=== PATIENT | male | born 1935 | race Caucasian/White ===

== ENCOUNTER 2017-11-17 05:48 | Day surgery (SDC) | payer OTHER ==
[~2017-11-17] VITALS: Ht 167.6 cm; Wt 74.8 kg
--- NOTE | ~2017-11-17 | O ---
[facility] [place] [address] OPERATIVE REPORT Name: TANA SANCHES Room #: DEP [facility]..#: [id number] Admission: 11/17/17 Attend Phys: Michoacano Torres MD Discharge: 11/17/17 Date of : 39 Report #: [id number] THIS REPORT FOR: //name// CC: Kathleen Cervantes DATE OF SERVICE: 11/17/2017 HAND TUFTER: None. PREOPERATIVE DIAGNOSIS: Bilateral lower lid entropion. POSTOPERATIVE DIAGNOSIS: Bilateral lower lid entropion. OPERATION PERFORMED: Bilateral lower lid entropion repair. ANESTHESIA: Local with IV sedation. COMPLICATIONS: None. INDICATIONS FOR PROCEDURE: This patient has bilateral lower lid entropion with chronic irritation and discharge. The current procedures are being undertaken in order to improve the patient's level of comfort and visual function. Informed consent was obtained to include but not limited to the loss of vision, bleeding, infection, scarring, failure to improve the problem and need for further surgery. DESCRIPTION OF OPERATION: The patient was taken to the operating room, where 2% Xylocaine with epinephrine mixed with equal parts of 0.75% Marcaine with Wydase was administered transcutaneously and transconjunctivally to each lower lid and lateral canthal area. The patient was then prepped and draped in the usual sterile fashion. A Vonnie clamp was used to clamp the left lateral canthus, following which a sharp canthotomy and cantholysis were performed. Hemostasis was achieved with a monopolar cautery, as it was throughout the case. A tarsal strip was prepared laterally, removing the lash bearing portion of the redundant lid margin and the redundant tarsal plate. A transconjunctival dissection was then undertaken just inferior to the lower border of the tarsal plate. The lower lid retractors were disinserted from the inferior border of the tarsal plate. The lower lid retractors were then advanced and reattached to the anterior surface of the tarsal plate with mattress 5-0 chromic sutures passed transconjunctivally and secured in the infraciliary margin. The tarsal strip was then secured laterally with 2 interrupted 5-0 Prolene sutures. The subcutaneous structures and the skin were then closed with multiple interrupted [address] [address] OPERATIVE REPORT Name: VERÓNICATANA Jefry Room #: DEP [facility].#: [id number] Admission: 11/17/17 Attend Phys: Michoacano Torres MD Discharge: 11/17/17 Date of : 39 Report #: [id number] 6-0 plain gut sutures so the lateral canthal angle was sharply reformed. The wounds were then cleaned and dressed with ophthalmic antibiotic ointment. The patient was then transported to the recovery area, having tolerated the procedure well with no anesthetic or operative complications being noted. By: [id number] Michoacano Torres MD /doreen
[~2017-11-17 05:48] MED LIST: ASPIR 8181 MG PO; FLOMAX0.4 MG PO; INDERAL LA120 MG PO; LEVOTHYROXIN0.025 MG PO; MYRBETRIQ50 MG PO; NORVASC5 MG PO; PRIMIDONE50 MG PO; SIMVASTATIN10 MG PO; SYNTHROID50 MCG PO
[2017-11-17 08:49] VITALS: BP 113/69
== END 2017-11-17 11:20 | disposition home or self-care (01) ==
LOC: TBA 05:48 → OR 05:48
DX: H02.002 Unspecified entropion of right lower eyelid (principal); H02.005 Unspecified entropion of left lower eyelid; I10 Essential (primary) hypertension; E03.9 Hypothyroidism, unspecified; E78.5 Hyperlipidemia, unspecified; Z98.41 Cataract extraction status, right eye; Z98.42 Cataract extraction status, left eye; Z98.890 Other specified postprocedural states; Z85.46 Personal history of malignant neoplasm of prostate; Z88.2 Allergy status to sulfonamides; Z79.82 Long term (current) use of aspirin; Z79.899 Other long term (current) drug therapy
CPT/HCPCS: 50010; 50101; 50386; 50398; 51636; 56527; 56531; 62110; 62850; 70005